=== PATIENT | female | born 1990 | race Hispanic/Latino ===

== ENCOUNTER 2018-03-01 10:02 | Emergency (ER) | payer OTHER ==
[~2018-03-01] VITALS: Ht 160 cm; Wt 88.5 kg
--- NOTE | 2018-03-01 11:24 | ED HEADACHE COMPLAINT ---
History of Present Illness General Chief Complaint: General Adult Stated Complaint: HAUSER, TINGLES IN R ARM, SYNCOPE, YESTERDAY Source: patient Exam Limitations: no limitations Vital Signs & Intake/Output Vital Signs & Intake/Output Vital Signs Date Time Temp Pulse Resp B/P B/P Pulse O2 O2 Flow FiO2 Mean Ox Delivery Rate 03/01 1431 97.2 76 18 110/72 99 Room Air 03/01 1218 78 18 113/63 99 Room Air 03/01 1014 97.1 72 16 109/78 98 Room Air Allergies Coded Allergies: shrimp (Severe, THROAT SWELLING 03/01/18) Uncoded Allergies: CRABS (Severe, THROAT CLOSING 03/01/18) CATS (Mild, RED EYES 03/01/18) Triage Note: PT COMPLAINS OF HEADACHE L SIDE HEAD THAT HAS BEEN SINCE YESTERDAY AND DESCRIBES A PRESSURE. ALSO STATES THAT SHE HAS BEEN HAVING R ARM TINGLING INTERMITTANT FOR ABOUT 1 YEAR WAS SEEN BY PMD FOR THE SAME. STATES THAT YESTERDAY SHE HAD A DIZZY SPELL AND A SHORT SYNCOPLE EPISODE , DENIES CP/SOB. Triage Nurses Notes Reviewed? yes Onset: Abrupt Duration: day(s): (1), constant Timing: recent history : No Patient currently breastfeeds: No HPI: 27-year-old female comes into the emergency room for further evaluation of tingling to her right arm that began last night with associated left-sided headache and then some vomiting that occurred after. She reports that she was with her children. She wanted to come in last night but couldn't. Stone. She woke up this morning her symptoms have been persistent. She had a near syncopal episode last night she felt lightheaded and had to sit down. No loss of consciousness. Denies any vomiting. Denies any fever chills cough. She reports these headaches have occurred previously in the past. Denies any other associated symptoms. (Chava Arevalo) Past History Travel History Traveled to [place] past 21 day No Medical History Any Pertinent Medical History? none Neurological: NONE EENT: NONE Cardiovascular: NONE Respiratory: NONE Gastrointestinal: NONE Hepatic: NONE Renal: NONE Musculoskeletal: NONE Psychiatric: NONE Endocrine: NONE Blood Disorders: NONE Cancer(s): NONE [employer] NETWORK ARCHITECT/Reproductive: NONE Surgical History Surgical History: non-contributory Psychosocial History What is your primary language Ivorian Tobacco Use: Never used ETOH Use: denies use Illicit Drug Use: denies illicit drug use Family History Hx Contributory? No (Chava Arevalo) Review of Systems Review of Systems Constitutional: Reports: no symptoms. Eyes: Reports: no symptoms. Ears, Nose, Throat, Mouth: Reports: no symptoms. Respiratory: Reports: no symptoms. Cardiovascular: Reports: see HPI. Gastrointestinal/Abdominal: Reports: no symptoms. Genitourinary: Reports: no symptoms. Musculoskeletal: Reports: see HPI. Skin: Reports: no symptoms. Neurological/Psychological: Reports: see HPI. Hematologic/Endocrine: Reports: no symptoms. Endocrine: Reports: no symptoms. Immunologic/Allergic: Reports: no symptoms. All Other Systems: Reviewed and Negative (Chava Arevalo) Physical Exam Physical Exam General Appearance: well developed/nourished, no apparent distress, alert, awake Head: atraumatic Eyes: Bilateral: normal appearance, PERRL, EOMI. Ears, Nose, Throat: normal pharynx, normal ENT inspection Neck: normal inspection Respiratory: normal breath sounds, no respiratory distress Cardiovascular: regular rate/rhythm Gastrointestinal: soft Psychiatric: awake, alert, oriented x 3 Cranial Nerves: normal hearing, normal speech, PERRL Coordination/Gait: normal finger to nose, normal gait Motor/Sensory: no motor/sensory deficits Skin: intact, normal color Core Measures Sepsis Present: No Sepsis Focused Exam Completed? No (Chava Arevalo) Progress Differential Diagnosis: cluster HAUSER, IC mass/tumor, intracranial Hem., migraine HAUESR, musculoskeletal pain, sinusitis, tension HAUSER, viral cephalgia Plan of Care: Orders Procedure Date/time Status Add-on Test (ER Only) 03/01 1124 Active THYROID STIMULATING HORMONE 03/01 1121 Complete TROPONIN LEVEL 03/01 1034 Complete HUMAN BETA HCG SCREEN 03/01 1034 Complete COMPREHENSIVE METABOLIC PANEL 03/01 1034 Complete CBC WITHOUT DIFFERENTIAL 03/01 1034 Complete EKG 03/01 1034 Active Laboratory Tests 03/01/18 1121: Anion Gap 10, Estimated GFR > 60, BUN/Creatinine Ratio 14.3, Glucose 83, Calcium 9.7, Total Bilirubin 0.5, AST 19, ALT 25, Alkaline Phosphatase 79, Troponin I < 0.01, Total Protein 7.3, Albumin 4.3, Globulin 3.0, Albumin/Globulin Ratio 1.4, TSH 1.610, Total Beta HCG NEGATIVE, CBC w Diff NO MAN DIFF REQ, RBC 5.25, MCV 79.2 L, MCH 26.2 L, MCHC 33.0, RDW 14.6 H, MPV 8.1, Gran % 61.2, Lymphocytes % 29.8, Monocytes % 5.3, Eosinophils % 3.2, Basophils % 0.5, Absolute Granulocytes 5.2, Absolute Lymphocytes 2.6, Absolute Monocytes 0.5, Absolute Eosinophils 0.3, Absolute Basophils 0 Diagnostic Imaging: Viewed by Me: Radiology Read, CT Scan. Discussed w/RAD: Radiology Read, CT Scan. Radiology Impression: PATIENT: JUAN LUIS ELLISON PRESENT AGE: 27 PATIENT ACCOUNT NO: [id number] : 90 LOCATION: ER ORDERING PHYSICIAN: Chava CALLE SERVICE DATE: 03/01/18 EXAM TYPE: CAT - CT HEAD WO IV CONTRAST EXAMINATION: CT HEAD WITHOUT CONTRAST CLINICAL INFORMATION: Left-sided headache COMPARISON: None TECHNIQUE: Contiguous axial imaging was performed from the skull base to vertex without intravenous administration of contrast. DLP: 567 mGy-cm FINDINGS: No intra-axial or extra- axial hemorrhage. No acute territorial infarct. Ventricles and sulci appear normal. Preservation of robbins-white matter differentiation. No mass, mass effect, or midline shift. No fracture. Mild incidental hyperostosis frontalis interna. The mastoid air cells and visualized paranasal sinuses are clear. IMPRESSION: No acute intracranial pathology. DICTATED BY: Eliud Dickerson MD DATE/TIME DICTATED:03/01/181400 TRAINING INSTRUCTOR:ZAIDA DATE/TIME TRANSCRIBED:1400 CONFIDENTIAL, DO NOT COPY WITHOUT APPROPRIATE AUTHORIZATION. < Electronically signed in Other Vendor System> SIGNED BY: Eliud Dickerson MD 03/01/189, PATIENT: JUAN LUIS ELLISON PRESENT AGE: 27 PATIENT ACCOUNT NO: [id number] : 90 LOCATION: ER ORDERING PHYSICIAN: Chava CALLE SERVICE DATE: 03/01/18 EXAM TYPE: RAD - XRY-CHEST XRAY, TWO VIEWS EXAMINATION: XR CHEST CLINICAL INFORMATION: Tingling and right arm COMPARISON: None TECHNIQUE: 2 views of the chest were obtained. FINDINGS: No focal consolidation, pulmonary edema, or pleural effusion. Normal cardiomediastinal silhouette. IMPRESSION: No acute cardiopulmonary findings. DICTATED BY: Eliud Dickerson MD DATE/TIME DICTATED:03/01/181406 TRAINING INSTRUCTOR:ZAIDA DATE/TIME TRANSCRIBED:03/01/181406 CONFIDENTIAL, DO NOT COPY WITHOUT APPROPRIATE AUTHORIZATION. <Electronically signed in Other Vendor System> SIGNED BY: Eliud Dickerson MD 03/01/18 1410 Initial ED EKG: normal sinus rhythm, rate (68), nonspecific ST T wave chg Comments: 03/01/2018 3:25:50 PM Patient clinically looks well. Patient is no apparent distress. No acute findings and workup. Follow-up with neurologist and primary care DrLiliane provided. Return if any other concerns. (Jarred CALLE,Chava) Departure Departure Disposition: HOME OR SELF CARE Condition: Stable Clinical Impression Primary Impression: Headache Secondary Impressions: Numbness and tingling of right arm Referrals: Zaida Zamorano MD (PCP/Family) Additional Instructions: Follow-up with your primary care doctor. Return if any concerns worsening symptoms. Please go over all results of today's visit with your primary care doctor. Contact your primary care doctor to let them know you were here in the emergency room. There may be nonspecific findings which may not be related to your visit today here in the emergency room but may require further evaluation and chronic monitoring by your primary care doctor. If you had a laceration today the chance of foreign body always remains. You should follow-up with your primary care doctor for recheck in 3-5 days for a wound check. If you had an x-ray done there is a chance that a fracture could have been missed on initial read and you should follow-up with your primary care doctor for repeat x-rays if symptoms persist. If your blood pressure was elevated here in the emergency room please have rechecked by danae primary care doctor within the next 48. If you were prescribed a narcotic here in the emergency room or any type of controlled substances you're not allowed to drive while taking this medication or operate any type of heavy machinery. Narcotics can make you feel lightheaded dizziness nausea and can cause constipation. You may need to filler picker a stool softener. Thank you for choosing [facility] emergency room. Please return to the emergency room immediately if you have any other concerns worsening of symptoms. Departure Forms: Customer Survey General Discharge Information (Chava Arevalo) PA/CHAIR INSPECTOR AND LEVELER Co-Sign Statement Statement: ED Attending supervision documentation- [] I saw and evaluated the patient. I have also reviewed all the pertinent lab results and diagnostic results. I agree with the findings and the plan of care as documented in the PA's/CHAIR INSPECTOR AND LEVELER's documentation. [X] I have reviewed the ED Record and agree with the PA's/CHAIR INSPECTOR AND LEVELER's documentation. [] Additions or exceptions (if any) to the PAs/CHAIR INSPECTOR AND LEVELER's note and plan are summarized below: [] (Hilton Haas DO)
[2018-03-01 11:33] LABS: ABSOLUTE BASOPHIL COUNT 0 /CUMM (0.0-0.2); ABSOLUTE EOSINOPHIL COUNT 0.3 /CUMM (0.0-0.7); ABSOLUTE GRANULOCYTE CT 5.2 /CUMM (1.4-6.5); ABSOLUTE LYMPH COUNT 2.6 /CUMM (1.2-3.4); ABSOLUTE MONOCYTE COUNT 0.5 /CUMM (0.10-0.60); BASOPHIL % 0.5 % (0.0-2.0); EOSINOPHIL % 3.2 % (0-5); GRANULOCYTE % 61.2 % (42.2-75.2); HEMATOCRIT 41.6 % (37-47); MEAN CORPUSCULAR HGB 26.2 PG (27.0-31.0); MEAN CORPUSCULAR VOLUME 79.2 FL (81.0-99.0); MEAN PLATELET VOLUME 8.1 FL (7.4-10.4); PLATELET COUNT 310 /CUMM (130-400); RBC DISTRIBUTION WIDTH 14.6 % (11.5-14.5); RED BLOOD CELL CT 5.25 /CUMM (4.20-5.40); WHITE BLOOD CELL COUNT 8.6 /CUMM (4.8-10.8)
--- NOTE | 2018-03-01 14:09 | CT SCAN REPORT ---
EXAMINATION: CT HEAD WITHOUT CONTRAST CLINICAL INFORMATION: Left-sided headache COMPARISON: None TECHNIQUE: Contiguous axial imaging was performed from the skull base to vertex without intravenous administration of contrast. DLP: 567 mGy-cm FINDINGS: No intra-axial or extra-axial hemorrhage. No acute territorial infarct. Ventricles and sulci appear normal. Preservation of robbins-white matter differentiation. No mass, mass effect, or midline shift. No fracture. Mild incidental hyperostosis frontalis interna. The mastoid air cells and visualized paranasal sinuses are clear. IMPRESSION: No acute intracranial pathology.
--- NOTE | 2018-03-01 14:10 | RADIOLOGY REPORT ---
EXAMINATION: XR CHEST CLINICAL INFORMATION: Tingling and right arm COMPARISON: None TECHNIQUE: 2 views of the chest were obtained. FINDINGS: No focal consolidation, pulmonary edema, or pleural effusion. Normal cardiomediastinal silhouette. IMPRESSION: No acute cardiopulmonary findings.
[2018-03-01 14:31] VITALS: BP 110/72
== END 2018-03-01 14:33 ==
LOC: ERH 10:02
PROVIDERS: Physician Assistant Medical
DX: R51 Headache (principal); R20.0 Anesthesia of skin
CPT/HCPCS: 71046; 93005; 93010